=== PATIENT | female | born 1960 | race Caucasian/White ===

== ENCOUNTER → 2017-01-07 | Outpatient (CLI) | payer BC ==
[~2017-01-07] MED LIST: CALC600T9 PO; CHOL20007 PO; IBUP-1050 PO; LEVO125T4 PO; METO50TA7 PO; PRAV20TA PO; PRLSR20 PO; ZNTT/150 PO
[2017-01-07 09:03] LABS: CHOLESTEROL/HDL RATIO 3.5
== END | disposition home or self-care (01) ==
LOC: C.LAB 08:13
PROVIDERS: ATTEND Internal Medicine
DX: E78.5 Hyperlipidemia, unspecified (principal)

== ENCOUNTER → 2017-04-27 | Outpatient (CLI) | payer BC ==
[~2017-04-27] MED LIST changes: -LEVO125T4 PO; +LEVO125T5 PO
--- NOTE | 2017-04-27 11:44 | DIAGNOSTIC IMAGING REPORT ---
RIGHT LOWER QUADRANT ABDOMINAL WALL ULTRASOUND CLINICAL HISTORY: R10.31 Abdominal pain, acute, right lower quadrant possible hernia COMPARISON STUDY: No previous studies for comparison. FINDINGS: Ultrasonographic evaluation of the right lower quadrant abdominal wall was performed. There is an appendectomy and hysterectomy scar. There is no ultrasonographic evidence of an abdominal wall hernia. Imaging was performed without a with stress maneuvers. IMPRESSION: No ultrasonographic evidence of a right lower quadrant abdominal wall hernia. Electronically signed by: Moi Bui M.D. 04/27/2017 11:42 AM Dictated Date/Time: 04/27/2017 11:41 AM
== END | disposition home or self-care (01) ==
LOC: C.ULTRBC 11:16
PROVIDERS: ATTEND Nurse Practitioner
DX: R10.31 Right lower quadrant pain (principal)

== ENCOUNTER → 2017-04-27 | Outpatient (CLI) | payer BC ==
[2017-04-27 12:13] LABS: BASO % 1.4 %; BASO ABS # 0.07 K/uL (0-0.2); COMPLETE YES; EOS % 1.6 %; HEMATOCRIT 42.7 % (37-47); IG% 0.2 %; LYMPH ABS # 1.53 K/uL (1.2-3.4); MEAN CELL VOLUME 92.6 fL (80-100); MEAN CORPUSCULAR HEMOGLOBIN 30.8 pg (25-34); MEAN CORPUSCULAR HGB CONC 33.3 g/dl (32-36); MEAN PLATELET VOLUME 10.3 fL (7.4-10.4); MONO % 9.3 %; NEUT % 56.5 %; PLATELET COUNT 357 K/uL (130-400); RED BLOOD COUNT 4.61 M/uL (4.2-5.4); WHITE BLOOD COUNT 4.94 K/uL (4.8-10.8)
[2017-04-27 12:51] LABS: BLOOD UREA NITROGEN 13 mg/dl (7-18); CALCIUM 7.8 mg/dl (8.5-10.1); CARBON DIOXIDE 30 mmol/L (21-32); CHLORIDE 103 mmol/L (98-107); CREATININE 0.78 mg/dl (0.60-1.20); GLUCOSE 104 mg/dl (70-99); POTASSIUM 4.3 mmol/L (3.5-5.1); SODIUM 140 mmol/L (136-145)
== END | disposition home or self-care (01) ==
LOC: C.LABBFT 10:31
PROVIDERS: ATTEND Nurse Practitioner
DX: Z11.59 Encounter for screening for other viral diseases (principal); R10.31 Right lower quadrant pain

== ENCOUNTER 2017-04-28 17:06 | Emergency (ER) | payer BC ==
[~2017-04-28] VITALS: Ht 167.6 cm; Wt 87.6 kg
[~2017-04-28 17:06] MED LIST changes: -CALC600T9 PO; -CHOL20007 PO; -IBUP-1050 PO; -LEVO125T5 PO; -ZNTT/150 PO
[2017-04-28 17:35] VITALS: TEMP 36.6; Ht 167.6 cm; Wt 87.6 kg
[2017-04-28 18:42] LABS: MANUAL MICROSCOPIC REQUIRED? NO; REVIEW REQ? NO; URINE APPEARANCE CLEAR (CLEAR); URINE BILIRUBIN NEG (NEG); URINE COLOR YELLOW; URINE NITRITE NEG (NEG); URINE SPECIFIC GRAVITY 1.011 (1.000-1.030); UROBILINOGEN NEG (NEG); ZZUR CULT IF INDIC CLEAN CATCH NO
[2017-04-28 18:53] LABS: BASO % 0.8 %; BASO ABS # 0.05 K/uL (0-0.2); COMPLETE YES; EOS % 1.9 %; HEMATOCRIT 41.5 % (37-47); IG% 0.2 %; LYMPH % 34.6 %; LYMPH ABS # 2.22 K/uL (1.2-3.4); MEAN CELL VOLUME 91.6 fL (80-100); MEAN CORPUSCULAR HEMOGLOBIN 31.6 pg (25-34); MEAN CORPUSCULAR HGB CONC 34.5 g/dl (32-36); MEAN PLATELET VOLUME 9.7 fL (7.4-10.4); MONO % 9.5 %; PLATELET COUNT 334 K/uL (130-400); RED BLOOD COUNT 4.53 M/uL (4.2-5.4); WHITE BLOOD COUNT 6.42 K/uL (4.8-10.8)
[2017-04-28 19:11] LABS: BUN/CREATININE RATIO 14.9 (10-20); CALCIUM 8.4 mg/dl (8.5-10.1); CREATININE 0.79 mg/dl (0.60-1.20); POTASSIUM 3.9 mmol/L (3.5-5.1)
[2017-04-28] MEDS ORDERED: CALC600T9 PO (19:12)
[2017-04-28] MEDS ORDERED: ZNTT/150 PO (19:12)
[2017-04-28] MEDS ORDERED: IBUP-1050 PO (19:12)
[2017-04-28] MEDS ORDERED: CHOL20007 PO (19:12)
[2017-04-28] MEDS ORDERED: LEVO125T5 PO (19:12)
--- NOTE | 2017-04-28 19:38 | DIAGNOSTIC IMAGING REPORT ---
ABDOMEN AND PELVIS CT WITHOUT CONTRAST CT DOSE: 1246.74 mGy.cm HISTORY: Flank pain right lower pain. Prior hyster, oophore, appendectomy TECHNIQUE: Multiaxial CT images of the abdomen and pelvis were performed without the use of intravenous and oral contrast according to the standard department stone protocol. COMPARISON STUDY: 06/15/2011 FINDINGS: Lung bases are considered clear. Liver spleen and pancreas appear unremarkable. A 2 mm nonobstructing left renal calcification. The adrenal glands are normal. Right kidney is negative for hydronephrosis. The ureters are normal in course and caliber. No evidence for an obstructing urinary tract calculus. Bladder is midline. There are no bladder calcifications. Bowel pattern overall is nonobstructive. IMPRESSION: Negative study Electronically signed by: Jordan Koroma M.D. 04/28/2017 7:37 PM Dictated Date/Time: 04/28/2017 7:34 PM
[2017-04-28 20:03] VITALS: BP 173/98; PULSE 66; O2SAT 99
--- NOTE | 2017-04-28 21:00 | EMERGENCY ROOM VISIT NOTE ---
History Report prepared by Molly: Jacob Plummer Under the Supervision of: Dr. Reed Trent M.D. First contact with patient: 18:32 Chief Complaint: ABDOMINAL PAIN Stated Complaint: ABDOMINAL PAIN FOR 3 DAYS History of Present Illness The patient is a 57 year old female who presents to the Emergency Room with complaints of persistent right lower quadrant abdominal pain that started 2 days ago. 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 The patient states that she is having sharp pain in just the one location, and it is worsened with sitting or bending over. She says that she is more comfortable standing or walking. The patient rates her current pain as an 8 out of 10 in severity, but she says that the pain was a bit worse yesterday. She notes that the pain has been more relieved by walking today. She has never had anything like this before. The patient has a history of an appendectomy, hysterectomy, and thyroidectomy. She still has her gallbladder. The patient adds that the left side of her abdomen feels fine. She denies any twisting movements that would have caused her pain. The patient has hypertension and hyperlipidemia. Her blood pressure has been under control with medication. Pt denies LOC, headache, fevers, chills, diaphoresis, visual changes, neck pain, chest pain, breathing difficulties, nausea, vomiting, back pain, melena, hematochezia, urinary symptoms, numbness, weakness, lymphadenopathy, rash, or other complaints. Source of History: patient Onset: 2 days ago Position: abdomen (RLQ) Symptom Intensity: currently 8/10 Timing: other (persistent) Modifying Factors (Worsening): other (sitting or bending over) Modifying Factors (Relieving): other (walking or standing up) Note: No other associated symptoms noted. Review of Systems See HPI for pertinent positives and negatives. A total of ten systems were reviewed and were otherwise negative. Past Medical & Surgical Medical Problems: (1) Hypercholesteremia (2) Hypertension Surgical Problems: (1) H/O oophorectomy (2) H/O thyroidectomy (3) S/P appendectomy (4) S/P hysterectomy Family History Cancer FHx: hyperlipidemia Hypertension Social History Smoking Status: Never Smoker Alcohol Use: occasionally Marital Status: Housing Status: lives with family Occupation Status: employed Current/Historical Medications Scheduled Calcium Carbonate-Vitamin D (Calcium + D), 1-2 TAB PO HS Cholecalciferol (Vitamin D3), 2,000 UNIT PO QPM Levothyroxine Sodium (Levothyroxine Sodium), 125 MCG PO QAM Metoprolol Succ (Toprol Xl) (Toprol-Xl), 100 MG PO DAILY Ranitidine (Zantac), 150 MG PO BID Scheduled PRN Ibuprofen (Advil), 200-800 MG PO Q6 PRN for Pain Allergies Coded Allergies: No Known Allergies (Verified , 04/28/17) Physical Exam Vital Signs Date Time Temp Pulse Resp B/P (MAP) Pulse Ox O2 Delivery O2 Flow Rate FiO2 04/28/17 20:03 66 16 173/98 99 04/28/17 19:47 80 18 172/96 04/28/17 17:35 36.6 84 20 171/96 99 Room Air Physical Exam GENERAL: Awake, alert, well-appearing, in no distress HENT: Normocephalic, atraumatic. Oropharynx unremarkable. EYES: Normal conjunctiva. Sclera non-icteric. NECK: Supple. No nuchal rigidity. FROM. No JVD. RESPIRATORY: Clear to auscultation. CARDIAC: Regular rate, normal rhythm. Extremities warm and well perfused. Pulses equal. ABDOMEN: Soft, non-distended. Right lower quadrant tenderness with palpation only in the seated position. No rebound or guarding. No masses. RECTAL: Deferred. MUSCULOSKELETAL: Chest examination reveals no tenderness. The back is symmetrical on inspection without obvious abnormality. There is no CVA tenderness to palpation. No joint edema. LOWER EXTREMITIES: Calves are equal size bilaterally and non-tender. No edema. No discoloration. NEURO: Normal sensorium. No sensory or motor deficits noted. SKIN: No rash or jaundice noted. Medical Decision & Procedures ER Provider Diagnostic Interpretation: CT: Radiology results as stated below per my review and radiologist interpretation ABDOMEN AND PELVIS CT WITHOUT CONTRAST CT DOSE: 1246.74 mGy.cm HISTORY: Flank pain right lower pain. Prior hyster, oophore, appendectomy TECHNIQUE: Multiaxial CT images of the abdomen and pelvis were performed without the use of intravenous and oral contrast according to the standard department stone protocol. COMPARISON STUDY: 06/15/2011 FINDINGS: Lung bases are considered clear. Liver spleen and pancreas appear unremarkable. A 2 mm nonobstructing left renal calcification. The adrenal glands are normal. Right kidney is negative for hydronephrosis. The ureters are normal in course and caliber. No evidence for an obstructing urinary tract calculus. Bladder is midline. There are no bladder calcifications. Bowel pattern overall is nonobstructive. IMPRESSION: Negative study Electronically signed by: Jordan Koroma M.D. 04/28/2017 7:37 PM Dictated Date/Time: 04/28/2017 7:34 PM Laboratory Results 04/28/17 18:42 Red Blood Count 4.53, Mean Corpuscular Volume 91.6, Mean Corpuscular Hemoglobin 31.6, Mean Corpuscular Hemoglobin Concent 34.5, Mean Platelet Volume 9.7, Neutrophils (%) (Auto) 53.0, Lymphocytes (%) (Auto) 34.6, Monocytes (%) (Auto) 9.5, Eosinophils (%) (Auto) 1.9, Basophils (%) (Auto) 0.8, Neutrophils # (Auto) 3.41, Lymphocytes # (Auto) 2.22, Monocytes # (Auto) 0.61, Eosinophils # (Auto) 0.12, Basophils # (Auto) 0.05 04/28/17 18:42 Test 04/28/17 18:30 04/28/17 18:42 Urine Color YELLOW Urine Appearance CLEAR (CLEAR) Urine pH 6.0 (4.5-7.5) Urine Specific [place] 1.011 (1.000-1.030) Urine Protein NEG (NEG) Urine Glucose (UA) NEG (NEG) Urine Ketones NEG (NEG) Urine Occult Blood NEG (NEG) Urine Nitrite NEG (NEG) Urine Bilirubin NEG (NEG) Urine Urobilinogen NEG (NEG) Urine Leukocyte Esterase NEG (NEG) White Blood Count 6.42 K/uL (4.8-10.8) Red Blood Count 4.53 M/uL (4.2-5.4) Hemoglobin 14.3 g/dL (12.0-16.0) Hematocrit 41.5 % (37-47) Mean Corpuscular Volume 91.6 fL (80-100) Mean Corpuscular Hemoglobin 31.6 pg (25-34) Mean Corpuscular Hemoglobin Concent 34.5 g/dl (32-36) Platelet Count 334 K/uL (130-400) Mean Platelet Volume 9.7 fL (7.4-10.4) Neutrophils (%) (Auto) 53.0 % Lymphocytes (%) (Auto) 34.6 % Monocytes (%) (Auto) 9.5 % Eosinophils (%) (Auto) 1.9 % Basophils (%) (Auto) 0.8 % Neutrophils # (Auto) 3.41 K/uL (1.4-6.5) Lymphocytes # (Auto) 2.22 K/uL (1.2-3.4) Monocytes # (Auto) 0.61 K/uL (0.11-0.59) Eosinophils # (Auto) 0.12 K/uL (0-0.5) Basophils # (Auto) 0.05 K/uL (0-0.2) RDW Standard Deviation 43.5 fL (36.4-46.3) RDW Coefficient of Variation 13.1 % (11.5-14.5) Immature Granulocyte % (Auto) 0.2 % Immature Granulocyte # (Auto) 0.01 K/uL (0.00-0.02) Anion Gap 9.0 mmol/L (3-11) Est Creatinine Clear Calc Drug Dose 88.6 ml/min Estimated GFR () 97.0 Estimated GFR (Non- 83.7 BUN/Creatinine Ratio 14.9 (10-20) Calcium Level 8.4 mg/dl (8.5-10.1) Total Bilirubin 0.4 mg/dl (0.2-1) Direct Bilirubin 0.1 mg/dl (0-0.2) Aspartate Amino Transf (AST/SGOT) 21 U/L (15-37) Alanine Aminotransferase (ALT/SGPT) 31 U/L (12-78) Alkaline Phosphatase 70 U/L (45-117) Total Protein 8.6 gm/dl (6.4-8.2) Albumin 4.5 gm/dl (3.4-5.0) Lipase 203 U/L (73-393) Laboratory results reviewed by me ED Course 185: The patient was evaluated in room B2. A complete history and physical exam was performed. 1947: I reevaluated the patient and she feels great. The patient verbally expressed understanding and agreement of the treatment plan. The patient will be discharged. Medical Decision Medication Reconciliation: I attest that I have personally reviewed the patient' s current medication list Blood pressure screening: Patient was found to have an elevated blood pressure and was referred to their primary doctor for recheck and further treatment. Triage Nursing notes reviewed. The patient's presentation and history were concerning for right lower quadrant abdominal pain. Etiologies such as musculoskeletal, nerve entrapment, scar tissue from prior surgeries, diverticulitis, obstruction, inflammatory bowel disease, renal colic , PUD, biliary pathology, pancreatitis, mesenteric ischemia, aortic pathology, infections, genitourinary, UTI, perforated viscus, as well as others were entertained. The patient was evaluated. No hernia was detected on examination. In the supine position she had no appreciable discomfort. She had no hernia standing up. With sitting she had tenderness in the right lower quadrant/inguinal area. The patient underwent blood work, urinalysis and CT imaging. CBC, chemistry panel, LFTs, lipase, and urinalysis were negative. CT imaging did not reveal any evidence of intra-abdominal pathology. As the patient has had a prior hysterectomy, nephrectomy, and appendectomy I do not suspect a serious surgical cause for her pain. She has a normal lower extremity examination. There is no supporting evidence to suggest vascular pathology. This seems to be most consistent with musculoskeletal or possibly nerve entrapment as it is very positional and reproducible. I discussed conservative management with the patient's patient felt very comfortable with this. She'll follow-up closely as an outpatient. The patient was discharged in stable condition for further evaluation by her primary care physician. Impression Primary Impression: RLQ abdominal pain Scribe Attestation The scribe's documentation has been prepared under my direction and personally reviewed by me in its entirety. I confirm that the note above accurately reflects all work, treatment, procedures, and medical decision making performed by me. Departure Information Dispostion Home / Self-Care Referrals Leonard Anderson M.D. (PCP) Forms Call Back Authorization, HOME CARE DOCUMENTATION FORM, IMPORTANT VISIT INFORMATION Patient Instructions [facility] Additional Instructions ABDOMINAL PAIN INSTRUCTIONS: Ibuprofen(Motrin, Advil) may be used for fever or pain. Use 600mg every six hours as needed. Take with food. Avoid using more than 2400mg in a 24 hour period. Do not use 2400mg per day for more than three consecutive days without physician direction. Prolonged inappropriate use can lead to stomach upset or ulcers. (AND/OR) Acetaminophen(Tylenol) may be used for fever or pain. Use 1000mg every six hours as needed. Avoid using more than 4000mg in a 24 hour period. Rest and drink plenty of fluids as tolerated. Continue current medications. Rest and avoid heavy lifting. Warm compresses for 20 minutes at a time four times daily for 2-3 days. Return to the ER immediately for worsening or persistent abdominal pain, vomiting, fevers, chest pains, difficulty breathing, black or bloody stools, worsening of your condition, or as needed. Follow up with your primary physician in 3 days for a recheck of your current condition.
== END 2017-04-28 20:04 | disposition home or self-care (01) ==
LOC: C.EDB 17:07
DX: R10.31 Right lower quadrant pain (principal); E89.0 Postprocedural hypothyroidism; I10 Essential (primary) hypertension; Z90.89 Acquired absence of other organs; Z90.710 Acquired absence of both cervix and uterus; Z79.899 Other long term (current) drug therapy; Z90.721 Acquired absence of ovaries, unilateral; Z90.5 Acquired absence of kidney

== ENCOUNTER 2017-04-29 06:03 | Emergency (ER) | payer BC ==
[~2017-04-29] VITALS: Ht 167.6 cm; Wt 87.3 kg
[~2017-04-29 06:03] MED LIST changes: +CALC600T9 PO; +CHOL20007 PO; +IBUP-1050 PO; +LEVO125T4 PO; -PRAV20TA PO; -PRLSR20 PO; +ZNTT/150 PO
[2017-04-29 06:05] VITALS: BP 169/90; PULSE 76; TEMP 36.7; O2SAT 95; Ht 167.6 cm; Wt 87.3 kg
--- NOTE | 2017-04-29 06:36 | EMERGENCY ROOM VISIT NOTE ---
History Report prepared by Molly: Reanna Middleton Under the Supervision of: Dr. Ritchie Rivera M.D. First contact with patient: 06:25 Chief Complaint: LEG PAIN,LEG INJURY Stated Complaint: RIGHT LEG PAIN AND NUMBNESS History of Present Illness The patient is a 57 year old female who presents to the Emergency Room with complaints of right thigh pain beginning last night. The patient states that she was seen here last night for abdominal pain after having pain for 48 hours. She reports that she got a CT scan and and medication and has been feeling better since she left last night. She notes that before she went to bed last night she noticed her right leg hurting and tingling but went to bed and when she woke up this morning the pain was still there. The patient complains of right upper leg numbness. She denies any abdominal pain, radiation to the lower leg, urinary symptoms, changes in bowel movements, nausea, vomiting, fever, and chills. The patient states that she has not had any new activities lately and has been more sedentary than usual at work. She reports that sitting down worsens her upper right leg pain. She rates her pain as an 8/10 in severity. The patient notes that when she was feeling abdominal pain yesterday it was also worsened with sitting. She reports a history of endometriosis, appendectomy due to endometriosis, hysterectomy, and oophorectomy. Source of History: patient Onset: last night Position: leg (right) Symptom Intensity: 8/10 Quality: tingling Timing: constant Modifying Factors (Worsening): other (sitting) Associated Symptoms: No fevers, No chills, No nausea, No vomiting, No abdominal pain, No urinary symptoms Note: The patient complains of right upper leg numbness. She denies any radiation to the lower leg and changes in bowel movements. Review of Systems All systems have been listed, reviewed, and are negative other than those previously mentioned. Please see Additional Medical History Sheet. Past Medical & Surgical Medical Problems: (1) Endometriosis (2) Hypercholesteremia (3) Hypertension Surgical Problems: (1) H/O oophorectomy (2) H/O thyroidectomy (3) S/P appendectomy (4) S/P hysterectomy Family History Cancer FHx: hyperlipidemia Hypertension Social History Smoking Status: Never Smoker Alcohol Use: occasionally Marital Status: Housing Status: lives with family Occupation Status: employed Current/Historical Medications Scheduled Calcium Carbonate-Vitamin D (Calcium + D), 1-2 TAB PO HS Cholecalciferol (Vitamin D3), 2,000 UNIT PO QPM Levothyroxine Sodium (Levothyroxine Sodium), 125 MCG PO QAM Metoprolol Succ (Toprol Xl) (Toprol-Xl), 100 MG PO DAILY Ranitidine (Zantac), 150 MG PO BID Scheduled PRN Ibuprofen (Advil), 200-800 MG PO Q6 PRN for Pain Allergies Coded Allergies: No Known Allergies (Verified , 04/28/17) Physical Exam Vital Signs Date Time Temp Pulse Resp B/P (MAP) Pulse Ox O2 Delivery O2 Flow Rate FiO2 04/29/17 06:05 36.7 76 18 169/90 95 Room Air Physical Exam GENERAL: Patient awake, alert, oriented x 3. Patient follows commands. Patient does not appear toxic. Patient is adequately hydrated and well- nourished. SKIN: No erythema, pallor, cyanosis or rash HEENT: Normal head, pupils equal, reactive to light and accommodation. LUNGS: Clear to auscultation. No wheezes, no rales, no rhonchi. HEART: No murmurs. No gallops. No rubs BACK: No tenderness, no swelling. ABDOMEN: No masses, no rebound, no hepatomegaly or splenomegaly. Palpation over the right inguinal area reveals no hernias or signs of infection. EXTREMITIES: No signs of trauma. No pedal or pretibial edema. No calf or thigh tenderness. NEUROLOGIC: Cranial nerves II-XII within normal limits. No gross motor sensory function deficits. Medical Decision & Procedures ED Course 0625: Past medical records reviewed. The patient was evaluated in room A3. A complete history and physical examination was performed. 0649: Upon reevaluation, the patient appeared to have improvement of her symptoms. I discussed today's findings with the patient. She verbalized agreement of the treatment plan. The patient was discharged home. Medical Decision Differential diagnosis includes sciatica, femoral hernia, inguinal hernia, neuritis, meralgia paresthetica. The patient is here today with pain over the anterior aspect of her right upper leg and some numbness in the same area. Pain is exacerbated by certain movements especially sitting and sometimes walking. The patient was here yesterday with abdominal pain which has since resolved. Patient has had an ultrasound and an abdominal CAT scan which did not reveal any significant pathology. The patient does have a prior history of endometriosis, hysterectomy , oophorectomy. The patient has no gynecologic complaints. She denies any recent dysuria, frequency, urgency. There has been no trauma or strain. On examination the patient does not have a femoral or inguinal hernia. The patient does have some slight numbness over the anterior aspect of her right anterior thigh. That does not extend below the knee. Circulation is intact. Pain is most consistent with meralgia paresthetica with involvement of branches of the femoral nerve. The patient will be placed on ibuprofen. She is to apply heat intermittently to her inguinal area. She is to follow-up with her family physician. The patient will also need to have her blood pressure rechecked by her family physician. Medication Reconciliation: I attest that I have personally reviewed the patient' s current medication list. Blood Pressure Screening: Patient was found to have an elevated blood pressure and was referred to their primary doctor for recheck and further treatment. Impression Primary Impression: Meralgia paresthetica of right side Scribe Attestation The scribe's documentation has been prepared under my direction and personally reviewed by me in its entirety. I confirm that the note above accurately reflects all work, treatment, procedures, and medical decision making performed by me. Departure Information Dispostion Home / Self-Care Referrals Leonard Anderson M.D. (PCP) Forms HOME CARE DOCUMENTATION FORM, IMPORTANT VISIT INFORMATION Patient Instructions My [facility] [employer] Additional Instructions 600 mg of ibuprofen every 6 hours. Apply heat intermittently to your right inguinal area. Follow-up with Dr. Anderson within the next 10 days.
== END 2017-04-29 07:10 | disposition home or self-care (01) ==
LOC: C.EDB 06:04 → C.EDA 07:10
DX: G57.11 Meralgia paresthetica, right lower limb (principal); I10 Essential (primary) hypertension; E78.00 Pure hypercholesterolemia, unspecified; Z90.710 Acquired absence of both cervix and uterus; E89.0 Postprocedural hypothyroidism; Z90.722 Acquired absence of ovaries, bilateral; Z80.9 Family history of malignant neoplasm, unspecified; Z82.49 Family history of ischemic heart disease and other diseases of the circulatory system; Z79.899 Other long term (current) drug therapy

== ENCOUNTER → 2017-06-16 | Outpatient (CLI) | payer BC ==
--- NOTE | 2017-06-16 13:57 | MAMMOGRAPHY REPORT ---
BILATERAL DIGITAL SCREENING MAMMOGRAM TOMOSYNTHESIS WITH CAD: 06/16/2017 CLINICAL HISTORY: Routine screening. Patient has no complaints. TECHNIQUE: Breast tomosynthesis in addition to standard 2D mammography was performed. Current study was also evaluated with a Computer Aided Detection (CAD) system. COMPARISON: Comparison is made to exams dated: 06/15/2016 mammogram, 04/29/2015 mammogram, 04/28/2014 m ammogram, 04/25/2013 mammogram, and 04/10/2012 mammogram - [facility]. BREAST COMPOSITION: The tissue of both breasts is heterogeneously dense, which may obscure small mas ses. FINDINGS: No suspicious masses, calcifications, or areas of architectural distortion are noted in ei ther breast. There has been no significant interval change compared to prior exams. IMPRESSION: ACR BI-RADS CATEGORY 1: NEGATIVE There is no mammographic evidence of malignancy. A 1 year screening mammogram is recommended. The pa tient will receive written notification of the results. Approximately 10% of breast cancers are not detected with mammography. A negative mammographic report should not delay biopsy if a clinically suggestive mass is present. Juliana Castellanos M.D. /:06/16/2017 12:06:33 Airline Pilot/First Officer: Rosy WU(Bob)(M), [facility] letter sent: Normal 1/2 BI-RADS Code: ACR BI-RADS Category 1: Negative
== END | disposition home or self-care (01) ==
LOC: C.MAMM 08:53
PROVIDERS: ATTEND Internal Medicine
DX: Z12.31 Encounter for screening mammogram for malignant neoplasm of breast (principal)

== ENCOUNTER → 2017-12-16 | Outpatient (CLI) | payer BC ==
[~2017-12-16] MED LIST changes: -LEVO125T4 PO; +LEVO125T5 PO; -METO50TA7 PO; +METO50TA8 PO; +RANI150T85 PO; -ZNTT/150 PO
[2017-12-16 08:44] LABS: BASO % 0.9 %; BASO ABS # 0.05 K/uL (0-0.2); EOS % 1.6 %; EOS ABS # 0.09 K/uL (0-0.5); HEMATOCRIT 41.5 % (37-47); HEMOGLOBIN 14.3 g/dL (12.0-16.0); IG# 0.01 K/uL (0.00-0.02); LYMPH % 36.2 %; LYMPH ABS # 2.02 K/uL (1.2-3.4); MEAN CELL VOLUME 92.8 fL (80-100); MEAN CORPUSCULAR HGB CONC 34.5 g/dl (32-36); MONO % 9.1 %; MONO ABS # 0.51 K/uL (0.11-0.59); PLATELET COUNT 330 K/uL (130-400); RED CELL DISTRIBUTION WIDTH CV 13.1 % (11.5-14.5); RED CELL DISTRIBUTION WIDTH SD 44.8 fL (36.4-46.3); WHITE BLOOD COUNT 5.58 K/uL (4.8-10.8)
[2017-12-16 09:20] LABS: ALKALINE PHOSPHATASE 79 U/L (45-117); ALT/SGPT 25 U/L (12-78); BLOOD UREA NITROGEN 18 mg/dl (7-18); CALCIUM 8.2 mg/dl (8.5-10.1); CARBON DIOXIDE 30 mmol/L (21-32); CHOLESTEROL 194 mg/dl (0-200); CREATININE 0.76 mg/dl (0.60-1.20); GLUCOSE 99 mg/dl (70-99); POTASSIUM 4.4 mmol/L (3.5-5.1); SODIUM 138 mmol/L (136-145)
[2017-12-16 09:26] LABS: AST/SGOT 15 U/L (15-37); LDL CHOLESTEROL CALCULATED 94 mg/dl; TOTAL PROTEIN 8.1 gm/dl (6.4-8.2)
== END | disposition home or self-care (01) ==
LOC: C.LAB 07:53
PROVIDERS: ATTEND Internal Medicine
DX: I10 Essential (primary) hypertension (principal); E78.5 Hyperlipidemia, unspecified; R73.01 Impaired fasting glucose; E89.0 Postprocedural hypothyroidism

== ENCOUNTER → 2017-12-22 | Outpatient (CLI) | payer BC ==
[~2017-12-22] MED LIST changes: +GADOXETATE DISODIUM (NON-WT BASED PROCEDURE) IV PRN
--- NOTE | 2017-12-23 15:20 | DIAGNOSTIC IMAGING REPORT ---
MRI LIVER COMBO CLINICAL HISTORY: Liver lesion. COMPARISON STUDY: CT of the abdomen and pelvis June 15, 2011 and April and MRI of the liver August 10, 2015. TECHNIQUE: Utilizing a 1.5 Kim magnet and dedicated coil, multiplanar, multiecho imaging of the abdomen was performed pre and postcontrast administration. Injection of 10 cc of Eovist IV was uneventful. Post contrast imaging was performed utilizing dynamic enhancement with 20 minute delayed phase imaging. FINDINGS: The morphology is normal. Note is made of a 2.5 x 2.3 cm hypervascular posterior right hepatic lobe lesion which is similar to MRI of August 10, 2015. This lesion measures 2.5 x 2.3 cm. It previously measured 2.4 x 2.3 cm. This retains contrast on delayed phase imaging. This may contain a central scar. A 0.5 cm hyperintense focus within segment 8 of the liver on delayed phase images is also unchanged. There is no biliary ductal dilatation. The spleen, adrenal glands, kidneys and pancreas are normal. There is no abdominal lymphadenopathy. IMPRESSION: No significant change in two right hepatic lobe lesions since MRI of August 10, 2015. These are benign and consistent with focal nodular hyperplasia. Electronically signed by: Jassi Martin M.D. 12/23/2017 3:19 PM Dictated Date/Time: 12/22/2017 7:17 PM
== END | disposition home or self-care (01) ==
LOC: C.MRI 17:38
PROVIDERS: ATTEND Internal Medicine
DX: K76.9 Liver disease, unspecified (principal)

== ENCOUNTER → 2018-01-15 | Outpatient (CLI) | payer BC ==
[~2018-01-15] MED LIST changes: -GADOXETATE DISODIUM (NON-WT BASED PROCEDURE) IV PRN
== END | disposition home or self-care (01) ==
LOC: C.MAMM 15:39
PROVIDERS: ATTEND Internal Medicine
DX: Z78.0 Asymptomatic menopausal state (principal)

== ENCOUNTER → 2018-06-14 | Outpatient (CLI) | payer BC ==
[2018-06-14 13:09] LABS: ALBUMIN 3.9 gm/dl (3.4-5.0); ALKALINE PHOSPHATASE 77 U/L (45-117); ALT/SGPT 23 U/L (12-78); AST/SGOT 16 U/L (15-37); BLOOD UREA NITROGEN 14 mg/dl (7-18); CALCIUM 8.1 mg/dl (8.5-10.1); CARBON DIOXIDE 28 mmol/L (21-32); CHOLESTEROL 211 mg/dl (0-200); CREATININE 0.82 mg/dl (0.60-1.20); GLUCOSE 94 mg/dl (70-99); LDL CHOLESTEROL CALCULATED 115 mg/dl; POTASSIUM 4.7 mmol/L (3.5-5.1); SODIUM 138 mmol/L (136-145); TOTAL PROTEIN 7.7 gm/dl (6.4-8.2)
[2018-06-14 13:14] LABS: HEMOGLOBIN A1C 5.5 % (4.5-5.6)
== END | disposition home or self-care (01) ==
LOC: C.LABBFT 07:56
PROVIDERS: ATTEND Internal Medicine
DX: R73.01 Impaired fasting glucose (principal); E89.0 Postprocedural hypothyroidism; E78.5 Hyperlipidemia, unspecified

== ENCOUNTER → 2018-06-18 | Outpatient (CLI) | payer BC | END | disposition home or self-care (01) | LOC: C.PAPS 18:13 | PROVIDERS: ATTEND Internal Medicine | DX: Z01.419 Encounter for gynecological examination (general) (routine) without abnormal findings (principal) ==

== ENCOUNTER → 2018-06-22 | Outpatient (CLI) | payer BC ==
--- NOTE | 2018-06-22 15:41 | MAMMOGRAPHY REPORT ---
BILATERAL DIGITAL SCREENING MAMMOGRAM TOMOSYNTHESIS WITH CAD: 06/22/2018 CLINICAL HISTORY: Routine screening. Patient has no complaints. TECHNIQUE: The study was acquired using full field digital technology and interpreted from soft copy. Breast tomosynthesis in addition to standard 2D mammography was performed. Current study was also ev aluated with a Computer Aided Detection (CAD) system. COMPARISON: Comparison is made to exams dated: 06/16/2017 mammogram, 06/15/2016 mammogram, 04/29/2015 m ammogram, 05/02/2014 mammogram, 04/28/2014 mammogram, and 04/25/2013 mammogram - [facility]. BREAST COMPOSITION: The tissue of both breasts is heterogeneously dense, which may obscure small mass es. FINDINGS: No suspicious masses, calcifications, or areas of architectural distortion are noted in either breast . There has been no significant interval change compared to prior exams. IMPRESSION: ACR BI-RADS CATEGORY 1: NEGATIVE There is no mammographic evidence of malignancy. A 1 year screening mammogram is recommended.( 019) The patient will receive written notification of the results. Some breast cancers are not detected with mammography. A negative mammographic report should not deborah y biopsy if a clinically suggestive mass is present. Juliana Castellanos M.D. ah/:06/22/2018 12:30:23 Coke Still Cleaner: RT Miguel(R)(M), [facility] letter sent: Normal 1/2 BI-RADS Code: ACR BI-RADS Category 1: Negative
== END | disposition home or self-care (01) ==
LOC: C.MAMM 10:42
PROVIDERS: ATTEND Internal Medicine
DX: Z12.31 Encounter for screening mammogram for malignant neoplasm of breast (principal)